=== PATIENT | female | born 1975 | race Caucasian/White ===

== ENCOUNTER 2017-10-26 08:14 | Outpatient (CLI) | payer OTHER | END 2017-10-26 08:15 | disposition home or self-care (01) | LOC: BICMAMMO 08:14 | PROVIDERS: ATTEND Family Medicine | DX: R92.8 Other abnormal and inconclusive findings on diagnostic imaging of breast (principal); R92.1 Mammographic calcification found on diagnostic imaging of breast; Z98.890 Other specified postprocedural states | CPT/HCPCS: 77066; G0279 ==

== ENCOUNTER 2018-01-03 09:41 | Emergency (ER) | payer OTHER ==
--- NOTE | 2018-01-03 10:23 | CT ---
HEAD CT NONCONTRAST: Date: 01/03/18 INDICATION: Post-traumatic pain. FINDINGS: There is no ventriculomegaly, mass effect, midline shift, or acute intracranial hemorrhage. IMPRESSION: No acute intracranial hemorrhage or mass effect. POS: [facility]
[2018-01-03] MEDS ORDERED: Ondansetron HCl/PF 4 MG/2 ML Vial ONE (10:39)
[2018-01-03 10:54] LABS: #Basophils 0.1 thou/uL (0.0-0.2); #Eosinphils 0.1 thou/uL (0.0-0.7); #Lymphocytes 0.9 thou/uL (1.20-3.40); #Monocytes 0.4 thou/uL (0.11-0.59); #Neutrophils 4.6 thou/uL (1.40-6.50); %Basophils 1.8 % (0.0-1.0); %Eosinophils 1.3 % (0.0-10.0); %Lymphocytes 15.4 % (21.0-51.0); %Monocytes 6.4 % (0.0-10.0); %Neutrophils 75.2 % (42.0-75.0); Hemoglobin 13.6 g/dL (12.0-16.0); Mean Corpuscular HGB CONC 31.9 g/dL (32.0-36.0); Mean Corpuscular Hemoglobin 31.1 pg (27.0-31.0); Mean Corpuscular Volume 97.5 fL (78.0-98.0); Mean Platelet Volume 10.6 fL (7.4-10.4); Platelet Count 157 thou/uL (130-400); RBC Distribution Width 11.6 % (11.5-14.5); Red Blood Cell (RBC) Count 4.38 mill/uL (4.20-5.40); White Blood Cell (WBC) Count 6.1 thou/uL (4.8-10.8)
[2018-01-03 11:14] LABS: ALT (SGPT) 22 U/L (8-55); AST (SGOT) 18 U/L (5-34); Albumin 3.9 g/dL (3.5-5.0); Alkaline Phosphatase 59 U/L (40-150); Anion Gap 11 mmol/L (10-20); BUN (Urea Nitrogen) 8 mg/dL (7.0-18.7); Bilirubin, Total 0.7 mg/dL (0.2-1.2); Calc. Creatinine Clearance 0 mL/min (70-130); Calcium 8.9 mg/dL (7.8-10.44); Carbon Dioxide 29 mmol/L (22-29); Chloride 107 mmol/L (98-107); Estimated GFR-MDRD 80; Globulin 2.7 g/dL (2.4-3.5); Glucose 117 mg/dL (70-105); Lipase 14 U/L (8-78); Potassium 4.3 mmol/L (3.5-5.1); Protein, Total 6.6 g/dL (6.0-8.3); Sodium 143 mmol/L (136-145)
[2018-01-03] MEDS ORDERED: Meclizine HCl 25 MG TAB ONE (11:59)
== END 2018-01-03 13:02 | disposition home or self-care (01) ==
LOC: SCSER 09:41
DX: H81.10 Benign paroxysmal vertigo, unspecified ear (principal); K52.9 Noninfective gastroenteritis and colitis, unspecified; W01.10XA Fall on same level from slipping, tripping and stumbling with subsequent striking against unspecified object, initial encounter
CPT/HCPCS: 70450; 80053; 83690; 85025; 96361; 96374; J2405

== ENCOUNTER → 2020-03-05 | Day surgery (SDC) | payer BC, OTHER ==
--- NOTE | 2020-03-05 09:10 | MMO ---
Exam: Right breast stereotactic biopsy, specimen radiograph, postprocedure mammogram HISTORY: Right breast calcifications. COMPARISON: 02/24/2020. FINDINGS: Successful right breast stereotactic biopsy. A total of six 10-gauge core biopsy samples we re obtained. Biopsy clip was placed. Calcifications are present. TECHNIQUE: Consent obtained to perform a right breast stereotactic biopsy. Right breast was prepped and draped in sterile fashion. 1% lidocaine, buffered with sodium bicarbonate, was used for local anesthesia. Needle position was confirmed pre and post firing.. Stereotactic biopsy was performed. A total of six 10-gauge core biopsy samples were obtained. Biopsy clip was placed. Clip was demonstrated to be outside of the needle. Specimen radiograph: Calcifications are present. Post procedure mammogram: There are expected postoperative changes in the right breast. IMPRESSION: Successful right breast stereotactic biopsy. Final pathologic diagnosis is pending. Transcribed Date/Time: 03/05/2020 10:24 AM
== END ==
LOC: MAMMO 06:41
PROVIDERS: ATTEND Physician Assistant
PROC: 0H9T0ZX Drainage of Right Breast, Open Approach, Diagnostic (ICD-10-PCS; principal; 2020-03-05)
DX: N60.11 Diffuse cystic mastopathy of right breast (principal)
CPT/HCPCS: 19081; 76098; 88305